=== PATIENT | male | born 1975 | race African-American/Black ===

== ENCOUNTER → 2016-12-20 | Outpatient (CLI) | payer OTHER ==
[~2016-12-20] MED LIST: APRESOLINE PO; ASPIRIN PO; AUGMENTIN PO; AZOR; BYSTOLIC; FLEXERIL10 MG PO; KETOPROFEN PO; MEDROL PO; MOTRIN100 MG PO; PERCOCET5/325 PO; TRILEPTAL PO; VICODIN 5/500 T1 TAB PO; [UNRECOGNIZED DRUG - REMARK]; [UNRECOGNIZED DRUG - REMARK]
== END | disposition home or self-care (01) ==
LOC: CLAB 13:32
DX: I50.9 Heart failure, unspecified (principal); R06.02 Shortness of breath; R06.2 Wheezing; R05 Cough; R06.89 Other abnormalities of breathing
CPT/HCPCS: 36415; 83880